=== PATIENT | female | born 1980 | race Caucasian/White ===

== ENCOUNTER 2016-04-10 08:54 | Emergency (ER) | payer SELFPAY ==
[~2016-04-10 08:54] MED LIST: AMOX500C PO; PRED20TA PO; PROAIR HFA8.5 GM INH
[2016-04-10 10:09] VITALS: BP 141/69
[2016-04-10] MEDS ORDERED: ALBUTEROL SULFATE 2.5 MG/3 ML NEBU. NEB ONE (11:00)
--- NOTE | 2016-04-10 11:13 | RAD ---
INDICATION: cough, CONGESTION COUGH, X 4 DAYS, H/O BRONCHITIS COMPARISON: None. FINDINGS: 2 views of chest obtained. No focal airspace consolidation. Mediastinal contour is unremarkable. No gross osseous destructive lesion. IMPRESSION: No focal airspace consolidation or edema.
--- NOTE | 2016-04-10 11:16 | PHYS DOC ---
Past Medical History Past Medical History: No Pertinent History, Other Additional Past Medical Histor: obesity Past Surgical History: Cholecystectomy, Hysterectomy Smoking: Less than 1pk/day Alcohol Use: None Drug Use: None Adult General Chief Complaint Chief Complaint: Congestion HPI HPI Patient is a 35 year old female who presents with nonproductive cough and nasal congestion for 5 days per denies fever, shortness of breath, or ear pain. She has been taking Tylenol Sinus and cold Mucinex without relief of her symptoms. She does not have a PCP. Review of Systems Review of Systems Constitutional: Denies fever or chills. [] Eyes: Denies change in visual acuity, redness, or eye pain. [] HENT: Denies ear pain or sore throat. Reports nasal congestion. Respiratory: Denies shortness of breath. Reports nonproductive cough. Cardiovascular: Denies chest pain, palpitations or edema. [] GI: Denies abdominal pain, nausea, vomiting, bloody stools or diarrhea. [] Musculoskeletal: Denies back pain or joint pain. [] Integument: Denies rash or skin lesions. [] Neurologic: Denies headache, focal weakness or sensory changes. [] All systems reviewed and negative unless otherwise stated in the HPI. Current Medications Current Medications Current Medications Medications (Trade) Dose Ordered Sig/Bal Start Time Stop Time Status Last Admin Dose Admin Albuterol Sulfate (Ventolin Neb Soln) 2.5 mg 1X ONCE 04/10/16 11:00 04/10/16 11:01 DC 04/10/16 11:18 2.5 MG Allergies Allergies Allergies Coded Allergies Type Severity Reaction Last Updated Verified codeine Allergy Intermediate 11/05/14 No nalbuphine HCl Adverse Reaction Intermediate Nausea and Vomiting 11/05/14 Yes Physical Exam Physical Exam Constitutional: Well developed, well nourished, no acute distress, non-toxic appearance. [] HENT: Normocephalic, atraumatic, bilateral external ears normal, oropharynx moist, no oral exudates, nose normal. Bilateral TMs without erythema or bulging. There is no posterior pharyngeal erythema or tonsillar edema. Bilateral nasal turbinates are swollen and erythematous with purulent drainage. Eyes: PERRLA, EOMI, conjunctiva normal, no discharge. [] Neck: Normal range of motion, no tenderness, supple, no stridor. [] Cardiovascular: Heart rate regular rhythm, no murmur [] Lungs & Thorax: Bilateral breath sounds clear to auscultation without wheezes, rales, or rhonchi. Skin: Warm, dry, no erythema, no rash. [] Neurologic: Alert and oriented X 3, normal motor function, normal sensory function, no focal deficits noted. [] Psychologic: Affect normal, judgement normal, mood normal. [] Current Patient Data Vital Signs Vital Signs Date Time Temp Pulse Resp B/P Pulse Ox O2 Delivery O2 Flow Rate FiO2 04/10/16 11:19 Room Air 04/10/16 10:09 97.6 76 14 97 97.6 EKG EKG [] Radiology/Procedures Radiology/Procedures REASON: cough, CONGESTION & COUGH, X 4 DAYS, H/O BRONCHITIS PROCEDURE: CHEST PA & LATERAL INDICATION: cough, CONGESTION COUGH, X 4 DAYS, H/O BRONCHITIS COMPARISON: None. FINDINGS: 2 views of chest obtained. No focal airspace consolidation. Mediastinal contour is unremarkable. No gross osseous destructive lesion. IMPRESSION: No focal airspace consolidation or edema. Course & Med Decision Making Course & Med Decision Making Pertinent Labs and Imaging studies reviewed. (See chart for details) [] Dragon Disclaimer Dragon Disclaimer This electronic medical record was generated, in whole or in part, using a voice recognition dictation system. Departure Departure Impression: Primary Impression: Bronchitis Disposition: 01 HOME, SELF-CARE Condition: STABLE Referrals: NO PCP (PCP) Patient Instructions: Acute Bronchitis, [id number] Additional Instructions: Your chest x-ray does not show any signs of pneumonia. Please complete all of the prescribed steroids, even if you are feeling better. Please use the prescribed inhaler as needed for cough or shortness of breath. Do not use more often than directed. Please follow-up with primary care provider in the next 2-3 days, sooner if concerns. Return to emergency department if you have any new or concerning symptoms. Scripts Benzonatate 200 Mg Capsule1 Cap PO TID #30 CAP Prov:JASS JAIMES 04/10/16 Prednisone 20 Mg Aaqast48 Mg PO DAILY 5 Days Prov:JASS JAIMES 04/10/16 Albuterol Sulfate (Proair Hfa Inhaler)8.5 Gm [id number] Puff INH Q4HRS PRN SHORTNESS OF BREATH #1 INHALER Prov:JASS JAIMES 04/10/16 JASS JAIMES Apr 10, 2016 11:16
[2016-04-10] MEDS ORDERED: PROAIR HFA8.5 GM INH (11:31)
[2016-04-10] MEDS ORDERED: BENZ200C39 PO (11:31)
[2016-04-10] MEDS ORDERED: PRED20TA PO (11:31)
== END 2016-04-10 11:41 | disposition home or self-care (01) ==
LOC: ER 08:54
DX: J40 Bronchitis, not specified as acute or chronic (principal); F17.200 Nicotine dependence, unspecified, uncomplicated; Z88.5 Allergy status to narcotic agent; Z88.8 Allergy status to other drugs, medicaments and biological substances
CPT/HCPCS: 71020; 94250; 94640; 99284

== ENCOUNTER 2018-11-02 18:47 | Emergency (ER) | payer BC ==
[~2018-11-02] VITALS: Ht 170.2 cm; Wt 108.9 kg
[~2018-11-02 18:47] MED LIST changes: +ALBU2.5V8 INH; +BENZ200C47 PO; -PROAIR HFA8.5 GM INH
[2018-11-02] MEDS ORDERED: diphenhydrAMINE 50 MG/ML VIAL IVP ONE (19:00)
[2018-11-02] MEDS ORDERED: IV NORMAL SALINE 1000ML BAG 1,000 ML IV ONE (19:00)
[2018-11-02] MEDS ORDERED: METOCLOPRAMIDE HCL 10 MG/2 ML VIAL. IV ONE (19:00)
[2018-11-02] MEDS ORDERED: KETOROLAC 30 MG/ML VIAL. IV ONE (19:00)
[2018-11-02 19:48] VITALS: BP 113/73
[2018-11-02] MEDS ORDERED: METO10TA81 PO (19:54)
--- NOTE | 2018-11-02 19:54 | PHYS DOC ---
Past Medical History Past Medical History: Migraines Additional Past Medical Histor: obesity Past Surgical History: Hysterectomy Alcohol Use: Rarely Drug Use: None Adult General Chief Complaint Chief Complaint: HEADACHE HPI HPI Patient is a 38-year-old female with a history of migraine headaches who presents with a 24-hour history of progressive headache. She states this is typical of her previous migraines. She states her whole head feels like it is throbbing. She complains of the pain being severe. She admits to both photophobia and phonophobia. She denies any fever or neck pain. She denies any lateralizing neurologic weakness. She has had some associated nausea.[] Review of Systems Review of Systems Constitutional: Denies fever or chills [] Eyes: Denies change in visual acuity, redness, or eye pain [] HENT: Denies nasal congestion or sore throat [] Respiratory: Denies cough or shortness of breath [] Cardiovascular: No additional information not addressed in HPI [] GI: Denies abdominal pain, nausea, vomiting, bloody stools or diarrhea [] : Denies dysuria or hematuria [] Musculoskeletal: Denies back pain or joint pain [] Integument: Denies rash or skin lesions [] Neurologic: Per history of present illness[] Endocrine: Denies polyuria or polydipsia [] All other systems were reviewed and found to be within normal limits, except as documented in this note. Current Medications Current Medications Current Medications Medications (Trade) Dose Ordered Sig/Bal Start Time Stop Time Status Last Admin Dose Admin Diphenhydramine HCl (Benadryl) 25 mg 1X ONCE 11/02/18 19:00 11/02/18 19:15 DC 11/02/18 19:19 25 MG Ketorolac Tromethamine (Toradol 30mg Vial) 30 mg 1X ONCE 11/02/18 19:00 11/02/18 19:15 DC 11/02/18 19:19 30 MG Metoclopramide HCl (Reglan Vial) 10 mg 1X ONCE 11/02/18 19:00 11/02/18 19:15 DC 11/02/18 19:19 10 MG Sodium Chloride 1,000 ml @ 1,000 mls/hr 1X ONCE 11/02/18 19:00 11/02/18 19:59 11/02/18 19:14 1,000 MLS/HR Allergies Allergies Allergies Coded Allergies Type Severity Reaction Last Updated Verified codeine Allergy Intermediate 11/05/14 No nalbuphine HCl Adverse Reaction Intermediate Nausea and Vomiting 11/05/14 Yes Physical Exam Physical Exam Constitutional: Well developed, well nourished, mild to moderate distress, non- toxic appearance. [] HENT: Normocephalic, atraumatic, bilateral external ears normal, oropharynx moist, no oral exudates, nose normal. [] Eyes: PERRLA, EOMI, conjunctiva normal, no discharge. [] Neck: Normal range of motion, no tenderness, supple, no stridor. [] Cardiovascular:Heart rate regular rhythm, no murmur [] Lungs & Thorax: Bilateral breath sounds clear to auscultation [] Abdomen: Bowel sounds normal, soft, no tenderness, no masses, no pulsatile masses. [] Skin: Warm, dry, no erythema, no rash. [] Back: No tenderness, no CVA tenderness. [] Extremities: No tenderness, no cyanosis, no clubbing, ROM intact, no edema. [] Neurologic: Alert and oriented X 3, normal motor function, normal sensory function, no focal deficits noted. [] Psychologic: Anxious[] Current Patient Data Vital Signs Vital Signs Date Time Temp Pulse Resp B/P (MAP) Pulse Ox O2 Delivery O2 Flow Rate FiO2 11/02/18 19:48 68 14 98 11/02/18 18:59 98.2 148/94 (112) 98.2 EKG EKG [] Radiology/Procedures Radiology/Procedures [] Course & Med Decision Making Course & Med Decision Making Pertinent Labs and Imaging studies reviewed. (See chart for details) [ED course: Evaluation reveals a 38-year-old female with typical migraine type symptoms. She was given IV fluids, Toradol 30 mg IV, Reglan 10 mg IV and Benadryl 25 mg IV with near complete resolution of her symptoms. We'll provide her with metoclopramide to take as an outpatient. Patient is safe for discharge home at this time.] Dragon Disclaimer Dragon Disclaimer This electronic medical record was generated, in whole or in part, using a voice recognition dictation system. Departure Departure Impression: Primary Impression: Migraine Disposition: 01 HOME, SELF-CARE Condition: STABLE Referrals: NO PCP (PCP) Patient Instructions: Migraine Headache Additional Instructions: Take medication as directed. Return to the emergency department with any new or concerning symptoms Scripts Metoclopramide Hcl (REGLAN) 10 Mg Tablet 1 TAB PO Q8HRS PRN for migraine, #30 TAB Take 25 mg of Benadryl by mouth with each dose Prov: ALIS SIDDIQUI DO 11/02/18 Problem Qualifiers Primary Impression: Migraine Migraine type: unspecified Status migrainosus presence: without status migrainosus Intractability: not intractable Qualified Codes: G43.909 - Migraine, unspecified, not intractable, without status migrainosus ALIS SIDDIQUI DO Nov 02, 2018 19:54
== END 2018-11-02 20:09 | disposition home or self-care (01) ==
LOC: ER 18:47
DX: G43.909 Migraine, unspecified, not intractable, without status migrainosus (principal); E66.9 Obesity, unspecified; Z68.37 Body mass index [BMI] 37.0-37.9, adult; Z88.5 Allergy status to narcotic agent; Z88.8 Allergy status to other drugs, medicaments and biological substances
CPT/HCPCS: 96361; 96374; 96375; 99284; J1200; J1885; J2765; J7030